=== PATIENT | female | born 1985 | race Caucasian/White ===

== ENCOUNTER 2016-10-01 01:45 | Emergency (ER) | payer OTHER | END 2016-10-01 05:04 | disposition home or self-care (01) | LOC: ER 01:45 | DX: N20.1 Calculus of ureter (principal); F17.200 Nicotine dependence, unspecified, uncomplicated; Z88.0 Allergy status to penicillin | CPT/HCPCS: 36415; 96361; 96374; 96375; 96376; J1885; Q9967 ==

== ENCOUNTER 2016-10-11 12:41 | Emergency (ER) | payer OTHER | END 2016-10-11 15:25 | disposition home or self-care (01) | LOC: ER 12:41 | DX: N13.2 Hydronephrosis with renal and ureteral calculous obstruction (principal); E66.9 Obesity, unspecified; F17.200 Nicotine dependence, unspecified, uncomplicated; Z88.0 Allergy status to penicillin | CPT/HCPCS: 36415; 80307; 96361; 96374; 96375; J1200; J1885; J2765 ==

== ENCOUNTER 2016-11-29 17:30 | Emergency (ER) | payer SELFPAY | END 2016-11-29 21:00 | disposition home or self-care (01) | LOC: ER 17:30 | DX: A59.01 Trichomonal vulvovaginitis (principal); F17.210 Nicotine dependence, cigarettes, uncomplicated; Z87.442 Personal history of urinary calculi; Z88.0 Allergy status to penicillin | CPT/HCPCS: 96372; J0696 ==